=== PATIENT | female | born 1985 | race Caucasian/White ===

== ENCOUNTER 2016-11-22 10:02 | Inpatient (IN) | payer OTHER ==
[~2016-11-22] VITALS: Ht 157.5 cm; Wt 59.2 kg
[~2016-11-22 10:02] MED LIST: BACTRIM DS1 TAB PO; CLINDAMYCIN HC300 MG PO; IBUPROFEN400 MG PO; IRON325 MG PO; LOPERAMIDE HCL2 MG PO; METHADONE HCL10 MG PO
--- NOTE | 2016-11-22 15:48 | DIAGNOSTIC IMAGING REPORT ---
PROCEDURE: CT ABD/PELVIS WITH CONTRAST INDICATION: Right abdominal pain. Nausea. Elevated white blood count (16,000). Prior cholecystectomy. History of Crohn disease. TECHNIQUE: 110 ml of Isovue 300 were injected intravenously and axial images were obtained of the entire abdomen and pelvis with sagittal and coronal reformations. COMPARISON: None. FINDINGS: ABDOMEN: There is mild increased fluid in the small bowel and right colon. Terminal ileum is decompressed, and there is no evidence of mucosal thickening. Appendix is normal. Cholecystectomy. Minimal intrahepatic ductal dilation. Common duct is normal. Liver is normal. Mild splenomegaly (13.5 cm). Pancreas, kidneys, and aorta are normal. Mild of basilar atelectasis. PELVIS: Retroverted uterus (normal variant). Adnexal regions are normal. No evidence of free fluid. IMPRESSION: 1. Mild increased fluid in the small bowel right colon. Findings are most compatible with enterocolitis. No definite evidence of Crohn disease. 2. Status post cholecystectomy. 3. Mild splenomegaly (13.5 cm). 4. Retroverted uterus (normal variant). 5. Mild bibasilar subsegmental atelectasis. 6. Findings discussed with Dr. Nabil Nguyen. All CT scans at this facility use dose modulation, iterative reconstruction, and/or weight-based dosing when appropriate to reduce radiation dose to as low as reasonably achievable.
--- NOTE | 2016-11-22 16:35 | ED CLINICAL REPORT ---
Clinical Report - Physicians/Mid Levels [facility] [address] [place] [address] 11/22/2016 10:03 Patient: KUSHAL SIMENTAL Time Seen: 11:01. Arrived- By private vehicle. Historian- patient. HISTORY OF PRESENT ILLNESS Chief Complaint: MUSCLE ACHES, NAUSEA, HEMATURIA, HEADACHE and WEAKNESS. At its maximum, severity described as severe. When seen in the E.D., severity described as severe. This started several days ago and is still present. It was gradual in onset and has been constant and waxing/waning. The patient has had loss of appetite, a headache, fatigue and generalized weakness. (The patient reports that she's been feeling poorly for several days. She says she is generally weak is aching all over has had chills and sweats. Additionally she reports a red area on her L hand that is swollen and painful. She also says that her urine has been very dark in color. Additionally she reports right-sided abdominal pain and some nausea but denies vomiting.). REVIEW OF SYSTEMS The patient has had chills, muscle aches, fatigue, a cough and moderate abdominal pain. The pain is described as located in the right side of the abdomen. She has had nausea and experienced sweats. No calf pain, chest pain, difficulty breathing, pedal edema or palpitations. No black stools, bloody stools, constipation, diarrhea or vomiting. No neck pain. All systems otherwise negative, except as recorded above. PAST HISTORY Problems: Abscess Check. Abscess. Cellulitis. Lifestyle / Substance Problems. Peptic Ulcer Disease. Scoliosis. Tenosynovitis. Drug Addiction. Anxiety Reaction. Sepsis. UTI - Urinary Tract Infection. Pancreatitis. Crohn's Disease. Contusion. Additional Surgeries: Cholecystectomy. Colonoscopy. Medications: None. Allergies: Ibuprofen. Tylenol. SOCIAL HISTORY No alcohol use. FAMILY HISTORY Denies family medical history. ADDITIONAL NOTES The nursing notes have been reviewed. PHYSICAL EXAM Vital Signs: 11/22/2016 10:50 BP: 112/69. HR: 130. RR: 20. O2 saturation: 98%. Temp: 100.3 F. Pain level now: 10/10. Have been reviewed. Appearance: Alert. Eyes: Pupils equal, round and reactive to light. ENT: Pharynx normal. Neck: Normal inspection. Neck supple. CVS: Tachycardia. Respiratory: No respiratory distress. Breath sounds normal. Abdomen: No visible injury. Moderate tenderness in the right side of the abdomen. Bowel sounds normal. No organomegaly. No mass. Back: Normal inspection. Mild CVA tenderness on the right. Skin: Small area of cellulitis with tenderness, erythema and warmth to left hand. Extremities: Extremities exhibit normal ROM. No calf tenderness. No lower extremity edema. LABS, X-RAYS, AND EKG Abdominal CT: IMPRESSION: 1. Mild increased fluid in the small bowel right colon. Findings are most compatible with enterocolitis. No definite evidence of Crohn disease. 2. Status post cholecystectomy. 3. Mild splenomegaly (13.5 cm). 4. Retroverted uterus (normal variant). 5. Mild bibasilar subsegmental atelectasis. The study was interpreted contemporaneously by me and discussed with the radiologist. Laboratory Tests: UA-Culture if indicated: (RAYA: 11/22/2016 10:55) ( MsgRcvd 11/22/2016 12:17) Final results Test Result Flag Units (Reference) URINE COLOR SOUMYA URINE APPEARANCE CLOUDY URINE GLUCOSE NEGATIVE (NEGATIVE) URINE BILIRUBIN ICTOTEST NEGATIVE (NEGATIVE) URINE KETONE TRACE (NEGATIVE) URINE SPECIFIC GRAVITY >= 1.030 (1.010-1.030) URINE PH 6.0 (5.0-8.0) URINE PROTEIN 2+ (NEGATIVE) URINE UROBILINOGEN 2.0 EU/dL (0.2-1.0) The urobilinogen reagent area may react with interferingsubstances known to react with Aby's reagent such asp-aminosalicylic acid and sulfonamides. Atypical colorreactions may be obtained in the presence of highconcentrations of p-aminobenzoic acid. The absence ofurobilinogen cannot be determined with this test. URINE NITRITE POSITIVE (NEGATIVE) URINE BLOOD 2+ (NEGATIVE) URINE LEUK ESTERASE NEGATIVE (NEGATIVE) URINE RBC 3-5 rbc/hpf (0-1) URINE WBC 25-50 wbc/hpf (0-1) URINE EPITHELIAL CELLS >15 EPI/hpf (0-5) URINE BACTERIA MODERATE (2+ TO 3+) (NONE SEEN) URINE COMMENT CULT NOT INDICATED 25-50 GRANULAR CASTS. CULTURE NOT INDICATED DUE TO >15EPITHELIAL CELLS WHICH INDICATES CONTAMINATION. IF CULTUREIS STILL REQUIRED, PLEASE CALL THE LAB.URINE CULTURES ARE SET-UP BASED ON THE FOLLOWING CRITERIA:POSITIVE NITRITEPOSITIVE LEUKOCYTE ESTERASEGREATER THAN 10 WHITE BLOOD CELLSMODERATE (2+) OR GREATER BACTERIA Urine: (RAYA: 11/22/2016 10:55) ( [facility] 11/22/2016 11:30) Final results Test Result Flag Units (Reference) URINE NEGATIVE CBC w Diff: (RAYA: 11/22/2016 11:55) ( [facility] 11/22/2016 13:19) Final results Test Result Flag Units (Reference) WHITE BLOOD COUNT 16.0 H K/uL (4.5-11.5) RED BLOOD COUNT 4.93 M/uL (4.00-5.20) HEMOGLOBIN 12.3 gm/dL (12.0-16.0) HEMATOCRIT 37.1 % (36.0-46.0) MEAN CELL VOLUME 75 L fL (80-100) MEAN CORPUSCULAR HGB 25 L pg (26-34) MEAN CORPUSCULAR HGB CONC 33 g/dL (31-37) RED CELL DISTRIBUTION WIDTH 13.5 % (11.6-14.8) PLATELET COUNT 265 K/uL (150-400) POLY % 81 H % (50-75) BAND % 8 % (0-8) LYMPH 8 L % (25-40) MONO 3 % (3-14) EOSINOPHIL % 0 % (0-4) BASOPHIL % 0 % (0-2) METAMYELOCYTE % 0 % (0-1) MYELOCYTE 0 % (0-1) OTHER CELL TYPE 0 Lactate, Serum: (RAYA: 11/22/2016 11:55) ( [facility] 11/22/2016 13:12) Final results Test Result Flag Units (Reference) LACTIC ACID 1.3 mmol/L (0.4-2.0) CMP: (RAYA: 11/22/2016 11:55) ( MsgRcvd 11/22/2016 13:49) Final results Test Result Flag Units (Reference) GLUCOSE 124 H mg/dL (70-110) BUN 9 mg/dL (7-18) CREATININE 0.9 mg/dL (0.6-1.3) Estimated GFR >60 mL/min Estimated GFR- >60 mL/min Note: Persistent reduction over 3 months in eGFR<60 mL/min/1.73 m2 defines CKD. Patients with eGFR values>=60 mL/min/1.73 m2 may also have CKD if evidence ofpersistent proteinuria. Additional information may be foundat www.kidney.org. SODIUM 123 L mmol/L (136-145) POTASSIUM 3.9 mmol/L (3.5-5.1) SPECIMEN GROSSLY HEMOLYZED. RESULT MAY BE INCREASED. PATIENTREFUSED REDRAW. CHLORIDE 87 L mmol/L (98-107) CARBON DIOXIDE 29 mmol/L (21-32) CALCIUM 8.9 mg/dL (8.5-10.1) TOTAL PROTEIN 8.1 g/dL (6.4-8.2) ALBUMIN 2.9 L g/dL (3.3-5.0) BILIRUBIN, TOTAL 0.9 mg/dL (0.0-1.0) ALKALINE PHOSPHATASE 31 L U/L (46-116) AST (SGOT) 25 U/L (15-37) SPECIMEN GROSSLY HEMOLYZED. RESULT MAY BE INCREASED. PATIENTREFUSED REDRAW. ALT (SGPT) 20 U/L (12-78) LIPASE 52 L U/L (73-393) AMYLASE 24 L U/L (25-115) Urine Drug Screen: (RAYA: 11/22/2016 10:55) ( MsgRcvd 11/22/2016 11:40) Final results Test Result Flag Units (Reference) AMPHETAMINE/METHAMPHETAMINE POSITIVE H (NEGATIVE) BARBITURATE NEGATIVE (NEGATIVE) BENZODIAZEPINE NEGATIVE (NEGATIVE) CANNABINOID POSITIVE H (NEGATIVE) COCAINE NEGATIVE (NEGATIVE) ECSTASY POSITIVE H (NEGATIVE) METHADONE NEGATIVE (NEGATIVE) OPIATE POSITIVE H (NEGATIVE) The urine drug screen is a qualitative screening test fordrug overdose and abuse. All screen results should beconsidered as presumptive.Drugs screened for are as follows:BenzodiazepinesCocaineAmphetamines/MetamphetaminesTHC (Tetrahydrocannabinol)OpiatesBarbituratesEcstasyMethadonePositive results are unconfirmed. For confirmation, notifythe lab for the specimen to be sent to the reference lab.All confirmations must be performed by a differentmethodology.The ingestion of natural herbal and plant productscontaining Ephedra/Ephedra metabolites can produce in urineone or more substances capable of cross reacting withamphetamine/methamphetamine immunoassays. These testsprovide a preliminary result only. A more specificalternative chemical method must be used to obtain aconfirmed analytical result. . PROGRESS AND PROCEDURES Course of Care: Patient is stable. Discussed case with hospitalist, (Aleja). Reviewed test results and need for additional work-up. Agreed upon treatment plan, need for patient follow-up and decision to place in observation. Patient/family counseled. Old medical records reviewed. Disposition: Admitted. CLINICAL IMPRESSION Acute fever. Leukocytosis. Substance abuse- marijuana, heroin, methamphetamines. Gastroenteritis. Cellulitis of the left hand. Possible urinary tract infection. (Electronically signed by Nabil Nguyen MD 11/24/2016 9:33)
--- NOTE | 2016-11-22 16:35 | ED NURSING NOTES ---
Clinical Report - Nurses [facility] [address] [place] [address] 11/22/2016 10:03 Patient: KUSHAL SIMENTAL TRIAGE Acuity: LEVEL 3. Chief Complaint: MUSCLE ACHES and HEADACHE. SEPSIS SCREEN: Sepsis Screen. Infection suspected/documented. Heart rate greater than 90. Physician notified and protocol initiated. MICHELLE COMA SCORE: [place] Coma Scale: 15- eyes open spontaneously (4); best verbal response- oriented x 4 (5); best motor response- obeys commands (6). --10:55 Rama Liz R.N. 10:50 11/22/16. BP: 112/69. HR: 130. RR: 20. O2 saturation: 98% on room air. Temp: 100.3 F (oral). Pain level now: 03/16. --10:55 Rama Liz R.N. Weight: 58.9 kg stated. Height/Length: 62 inches Per Patient. BMI: 23.8. --10:54 Rama Liz R.N. Medications None. --10:51 Rama Liz R.N. Medication/allergy information source: the patient. --10:55 Rama Liz R.N. Allergies Ibuprofen. Tylenol. --10:51 Rama Liz R.N. History Arrived by private vehicle, and unaccompanied. Primary physician ([facility] Arjun). Onset. (3 days ago). PAST MEDICAL HX: Last normal menstrual period was 4 weeks ago. SOCIAL HX: Never smoker. History of heavy IV drug use: heroin, methamphetamines. No alcohol use. FALL RISK ASSESSMENT: Fall risk assessment completed. No fall risk identified. NUTRITIONAL RISK ASSESSMENT: The nutritional risk assessment revealed no deficiencies. FUNCTIONAL ASSESSMENT: Functional assessment: no impairments noted. LEARNING NEEDS ASSESSMENT: The learning needs assessment revealed no barriers. SKIN INTEGRITY ASSESSMENT: Skin integrity risk assessment completed. No skin integrity risk identified. --10:55 Rama Liz R.N. PROBLEMS: Abscess Check. Abscess. Cellulitis. Abcess. Lifestyle / Substance Problems. Peptic Ulcer Disease. Scoliosis. Tenosynovitis. Drug Addiction. Anxiety Reaction. Sepsis. Pancreatitis. Crohn's Disease. Contusion. Abdominal Pain. Dental Caries. LNMP - Last Normal Menstrual Period. --10:51 Rama Liz R.N. UTI - Urinary Tract Infection [RuleOut]. --16:22 Nabil Nguyen MD The following entry was modified by Nabil Nguyen MD, 16:22 <<STRICKEN ENTRY-- UTI - Urinary Tract Infection. --15:08 Rama Liz R.N. --END STRIKE>>. ADDITIONAL SURGERIES: Cholecystectomy. Colonoscopy. --10:51 Rama Liz R.N. Assessment GENERAL / NEURO / PSYCH: Alert. Oriented X 4. Appears in no acute distress. Patient appears calm and cooperative. RESPIRATORY: Respirations not labored. CVS: Capillary refill less than 2 seconds. GI / : Abdomen soft and nontender. SKIN: Mucous membranes are pink. Skin is warm and dry. --10:55 Rama Liz R.N. Interventions ID band on patient. To treatment room. --10:55 Rama Liz R.N. PHYSICAL ASSESSMENT 10:56 11/22/16. Ambulatory to room. GENERAL / NEURO / PSYCH: Alert. Oriented X 4. Appears in no acute distress. HEENT: Pupils equal, round and reactive to light. Mucous membranes are pink. RESPIRATORY: Respirations not labored. CVS: Capillary refill less than 2 seconds. Pulses within normal limits. GI / : Abdomen soft and nontender. SKIN: Skin intact. Skin is warm and dry. Normal skin turgor. --10:56 Rama Liz R.N. NURSING PROGRESS NOTES Patient gowned. Two patient identifiers checked. Checked patient name and birthdate. Call light placed in reach. Side rails up x 1. Bed placed in lowest position. Brakes of bed on. Patient ready for evaluation- chart flagged and ED physician notified. --10:56 Rama Liz R.N. 11:59 11/22/2016 Site #1 started via IV in the right upper arm with an 20g angiocath, with aseptic technique and good blood return; one attempt. Blood drawn: rainbow set and cultures x1. Labeled in the presence of the patient and sent to the lab. Saline lock flushed with 10 mL saline (Right upper arm basilic. ultrasound guidance x20 minutes. one attempt.). --12:09 Nicanor Alicea R.N. 12:04 11/22/2016 Started bag #1 1000 mL IV Fluids IV NS (Saline); at 999 mL/hr over 1 hour(s) via site #1. Allergies verified and confirmed 5 rights. IV patency established. IV site checked: no pain, redness, or swelling. IV flushed thoroughly pre- and post-medication administration. Completed per protocol. --12:09 Nicanor Alicea R.N. 12:35 11/22/16. BP: 125/79. HR: 18. RR: 20. O2 saturation: 100% on room air. Temp: 100.2 F (oral). --12:35 Rama Liz R.N. 14:31 11/22/16. Patient transported to CT by stretcher with tech. --14:31 Rama Liz R.N. 14:38 11/22/16. Patient returned from CT by stretcher with tech. --14:38 Rama Liz R.N. 16:01 11/22/16. BP: 128/82. HR: 135. RR: 18. O2 saturation: 100% on room air. Temp: 102.9 F (oral). ED physician notified. --16:02 Rama Liz R.N. 13:10 11/22/2016 IV Fluids IV NS Discontinued: bag #1 upon arrival. Total amount infused: 1000 mL. IV patency established. IV site checked: no pain, redness, or swelling. IV flushed thoroughly. --16:10 Rama Liz R.N. <<STRICKEN ENTRY-- 16:11 11/22/2016 Started bag #2 1000 mL IV Fluids IV NS (Saline); at 200 mL/hr over 4 hour(s) via site #1 via IV pump. Allergies verified and confirmed 5 rights. IV patency established. IV site checked: no pain, redness, or swelling. IV flushed thoroughly pre- and post-medication administration. --16:11 Rama Liz R.N. --END STRIKE>> Correction. --16:11 Rama Liz R.N. 16:11 11/22/2016 Started bag #2 1000 IV Fluids IV NS (Saline); at 200 mL/hr over 4 hour(s) via site #1 via IV pump. Allergies verified and confirmed 5 rights. IV patency established. IV site checked: no pain, redness, or swelling. IV flushed thoroughly pre- and post-medication administration (per ED MD order). --16:11 Rama Liz R.N. 16:27 11/22/16. ( Pt refuses to allow second set of blood cultures to be drawn.). --16:27 Rama Liz R.N. 16:49 11/22/2016 Started 3.375 gm of Zosyn (Piperacillin Sod-Tazobactam So) IVPB in bag #1 50 mL; at 100 mL/hr over 30 minute(s) via site #1 via IV pump. Allergies verified and confirmed 5 rights. IV patency established. IV site checked: no pain, redness, or swelling. IV flushed thoroughly pre- and post-medication administration. --16:49 Rama Liz R.N. 16:50 11/22/16. ( Dr Masterson at bedside.). --16:50 Rama Liz R.N. 17:12 11/22/16. BP: 125/80. HR: 132. RR: 18. O2 saturation: 100%. Temp: 103.1 F. --17:14 Rama Liz R.N. 17:21 11/22/2016 Zosyn IVPB Discontinued: bag #1 infused. Total amount infused: 117 mL. IV patency established. IV site checked: no pain, redness, or swelling. IV flushed thoroughly. --17:21 Rama Liz R.N. 17:25 11/22/2016 Started 1.5 gm of Vancomycin IVPB in bag #1 500 mL; at 324 mL/hr over 90 minute(s) via site #1 via IV pump. Allergies verified and confirmed 5 rights. IV patency established. IV site checked: no pain, redness, or swelling. IV flushed thoroughly pre- and post-medication administration. --17:26 Rama Liz R.N. DISPOSITION / DISCHARGE 17:32 11/22/16. BP: 122/86. HR: 126. RR: 18. O2 saturation: 98% on room air. Temp: 103 F. --17:34 Rama Liz R.N. Departure time: 17:34 Nov 22 2016. Condition at departure: improved and stable. Admitted to Acute Care. Transported via stretcher by tech with IV. Report was given to a nurse via a phone call. Report included patient's care, treatment, medications, reviewed medication reconcilliation, and condition (including any recent changes or anticipated changes). All questions were answered. Report was acknowledged and care was transferred. (WADE Rankin). Patient's personal items include: shirt, pants, socks, shoes, jewelry and wallet; items were placed in belongings bag and transported with the patient. She did not have glasses, contacts, dentures or a hearing aid or cell phone. --17:34 Rama Liz R.N. 17:30 11/22/2016 Site #[address] upon admission; patent, no pain and no signs of infection or infiltration. --17:55 Rama Liz R.N. 17:30 11/22/2016 IV Fluids IV NS Continued: upon admission at the rate of 200 mL/hr. 800 mL remaining bag #2. IV patency established. IV site checked: no pain, redness, or swelling. IV flushed thoroughly. --17:55 Rama Lzi R.N. 17:32 11/22/2016 Vancomycin IVPB Continued: upon admission at the rate of 353 mL/hr. 400 mL remaining bag #1. IV patency established. IV site checked: no pain, redness, or swelling. IV flushed thoroughly. --17:58 Rama Liz R.N. Locked/Released at 11/22/2016 17:58 by Rama Liz R.N.
--- NOTE | 2016-11-22 16:35 | ED ORDER SUMMARY ---
..... Patient: KUSHAL SIMENTAL OrderSheet [facility] VisitID: [id number] [address] [place] [address] 31y, F Registration Date/Time: 11/22/2016 ORDER SHEET Weight: 58.9 kg (stated) Allergies: Ibuprofen, Tylenol GENERAL ORDERS: UA-Culture if indicated Urgent (11:00 11/22/2016 MWinterer R.N. per protocol) (11:16 MWinterer R.N.) Urine Urgent (11:11/22/2016 MWinterer R.N. per protocol) (11:16 MWinterer R.N.) Urine Drug Screen Urgent (11:11/22/2016 Debora STARK) (11:16 MWinterer R.N.) Blood Culture (No) (N/A) Urgent (11:11/22/2016 Debora STARK) (Ack 11:57 Juliet) (12:09 KWilliams R.N.) CBC w Diff Urgent (11:11/22/2016 Debora STARK) (Ack 11:57 Juliet) (12:09 KWilliams R.N.) CMP Urgent (11:11/22/2016 Debora STARK) (Ack 11:57 Juliet) (12:09 KWilliams R.N.) Amylase Urgent (11:11/22/2016 Debora STARK) (Ack 11:57 Juliet) (12:09 KWilliams R.N.) Lipase Urgent (11:11/22/2016 Debora STARK) (Ack 11:57 Juliet) (12:09 KWilliams R.N.) Lactate, Serum Urgent (11:11/22/2016 Debora STARK) (Ack 11:57 Juliet) (12:09 KWilliams R.N.) CT Abd/Pel w Cont (No) (see rpeort) Urgent (14:07 11/22/2016 Debora STARK) (Ack 14:11 AMcQuoid ER Tech1) (14:37 MWinterer R.N.) MEDICATION ORDERS: IV FLUIDS: IV NS : initial bolus 1000 mL (1000 mL/hr), then 150 mL/hr for 4h (NOW); Urgent (11:02 11/22/2016 Debora STARK) (Ack 11:17 MWinterer R.N.) (12:09 KWilliams R.N.) Zosyn IV 3.375 gm/50mL (NOW) (16:24 11/22/2016 Debora STARK) (Ack 16:27 MWinterer R.N.) (16:49 MWinterer R.N.) Vancomycin IV 1.5 gm/500 mL (NOW) (16:24 11/22/2016 Debora STARK) (Ack 16:27 MWinterer R.N.) (17:26 MWinterer R.N.) ORDER SHEET NOTES: [Electronically signed by Rama Liz R.N. (17:58 11/22/2016)] [Electronically signed by Nabil Nguyen MD (09:33 11/24/2016)] [Electronically locked/signed by Rama Liz R.N. (17:58 11/22/2016)]
--- NOTE | 2016-11-22 16:35 | ED ORDER SUMMARY ---
..... Patient: KUSHAL SIMENTAL OrderSheet [facility] VisitID: [id number] [address] [place] [address] 31y, F Registration Date/Time: 11/22/2016 ORDER SHEET Weight: 58.9 kg (stated) Allergies: Ibuprofen, Tylenol GENERAL ORDERS: UA-Culture if indicated Urgent (11:00 11/22/2016 MWinterer R.N. per protocol) (11:16 MWinterer R.N.) Urine Urgent (11:11/22/2016 MWinterer R.N. per protocol) (11:16 MWinterer R.N.) Urine Drug Screen Urgent (11:11/22/2016 Debora STARK) (11:16 MWinterer R.N.) Blood Culture (No) (N/A) Urgent (11:11/22/2016 Debora STARK) (Ack 11:57 Juliet) (12:09 KWilliams R.N.) CBC w Diff Urgent (11:11/22/2016 Debora STARK) (Ack 11:57 Juliet) (12:09 KWilliams R.N.) CMP Urgent (11:11/22/2016 Debora STARK) (Ack 11:57 Juliet) (12:09 KWilliams R.N.) Amylase Urgent (11:11/22/2016 Debora STARK) (Ack 11:57 Juliet) (12:09 KWilliams R.N.) Lipase Urgent (11:11/22/2016 Debora STARK) (Ack 11:57 Juliet) (12:09 KWilliams R.N.) Lactate, Serum Urgent (11:11/22/2016 Debora STARK) (Ack 11:57 Juliet) (12:09 KWilliams R.N.) CT Abd/Pel w Cont (No) (see rpeort) Urgent (14:07 11/22/2016 Debora STARK) (Ack 14:11 AMcQuoid ER Tech1) (14:37 MWinterer R.N.) MEDICATION ORDERS: IV FLUIDS: IV NS : initial bolus 1000 mL (1000 mL/hr), then 150 mL/hr for 4h (NOW); Urgent (11:02 11/22/2016 Debora STARK) (Ack 11:17 MWinterer R.N.) (12:09 KWilliams R.N.) Zosyn IV 3.375 gm/50mL (NOW) (16:24 11/22/2016 Debora STARK) (Ack 16:27 MWinterer R.N.) (16:49 MWinterer R.N.) Vancomycin IV 1.5 gm/500 mL (NOW) (16:24 11/22/2016 Debora STARK) (Ack 16:27 MWinterer R.N.) (17:26 MWinterer R.N.) ORDER SHEET NOTES: [Electronically signed by Rama Liz R.N. (17:58 11/22/2016)] [Electronically signed by Nabil Nguyen MD (09:33 11/24/2016)] [Electronically locked/signed by Rama Liz R.N. (17:58 11/22/2016)]
--- NOTE | 2016-11-22 17:18 | Progress Note ---
Subjective General Admission History and Physical Examination Patient Name: Magdalena Cash Admission Date: November 22, 2016 Primary Care Provider: None Attending Physician: Moris Hagan M.D. Admitting Physician: Cheng Masterson M.D. SUBJECTIVE Historian: Patient Reliability: Fair Chief Complaint: Abdominal pain Dysuria Pain swelling over the left hand General body body aches with headache/neck pain. History of Present Illness: The patient is a 31 - year-old single white female with a past medical history of Crohn's disease, scoliosis, illicit drug use-heroin, methamphetamine, THC, who presented to [facility] emergency room on the day of admission with upper abdominal pain, fatigue (malaise, chills) changes in urination (incontenence), swelling and pain in the left dorsum of the left hand and general body aches. The history of present illness was reported 4 days prior to the admission. She developed epigastric pain, nausea no vomitting. She generally stools multiple times per day with hx of the Crohn's,, but due to her lack of oral intake she was not stooling over thepast 4 days. She reports of a decrease in her urinations. when the patient developed abdominal pain. Her general aches, headaches was said to be moderate to severe degree Secondary to increasing and progressive symptoms the patient presented to [facility] emergency department for further evaluation and treatment. Evaluation at [facility] emergency department was consistent with enterocolitis, UTI, cellutlitis and (rule out for endocarditis given IVDU, fever and tachycadia. She reports that she last used heroin, injection in the feet; this morning and methamphetamine 4 days ago. denies use of the left upper extremity for injection. She's had problems with skin on the left hand in the past. She was admitted by Cheng Masterson MD for further evaluation and treatment. PAST MEDICAL HISTORY Illnesses: 1. Crohn's disease 2. Illicit drug use-heroin, methamphetamine, THC, 3. Scoliosis Allergies: 1. Tylenol Medications: 1. Ibuprofen 400 mg po as needed for headache pain Surgery: 1. Cholecystectomy Injuries: 1. No significant Hospitalizations: 1. For above surgery and medical problems. FAMILY HISTORY Parents: 1. Father, Unknown, 2. Mother, , 48, drugs/alcohol overdose. Hypertension, Crohn's disease Siblings: 1. Female, 20s with muscular dystrophy Children: 1. The patient has 2 children age 7 and 11 with no medical problems. Other significant family history: None SOCIAL HISTORY 1. Marital Status: 2. Evangelical: None 3. Education: 12th grade 4. Employment History: Unemployed 5. Occupational health exposures: None. 6. Patient currently lives with her grandparents in a trailer on the property. She does not have custody of children due to the drug use. lost custody of her children. Secondary to her drug usage. Her former spouse has custody of her children at this time. HABITS 1. Tobacco: None 2. Drugs: Heroin, methamphetamine, marijuana 3. Alcohol: None 4. Caffeine: multiple cups per day of coffee. HEALTH SUPERVISION Item/Test 1. Pap, pelvic 2013; none afterward. IMMUNIZATIONS: 1. Pneumococcal: Non previous 2. Influenza: 2013 3. Tetanus: 2013 REVIEW OF SYSTEMS Remarkable for those things stated in the history of present illness and past medical history. Constitutional Weakness, Malaise, Other (body aches.). Respiratory Denies: SOB w/exertion, Wheezing. Cardiovascular Other (tachycardia). Gastrointestinal Nausea, Abdominal Pain, Diarrhea. Denies: Vomiting. Genitourinary Dysuria, Incontinence. Musculoskeletal Hand Pain, Other (hx of scoliosis). Skin Rash. Physical Exam Vital Signs / I&Os 112/69. HR: 130. RR: 20. O2 saturation: 98%. Temp: 100.3 F. Pain level now: 10/ 10. General Appearance Alert, Oriented X3, Cooperative, Mild distress HEENT EOMI Lungs Clear to auscultation Neck No JVD, No masses, No thyromegaly, neck pain with movement, negative brudinski. Cardiovascular Normal S1 and S2, No murmurs, gallops, rubs, tachycardia, normal rhythm Abdomen hyperactive bs Extremities No cyanosis, No clubbing, No edema, Normal pulses Skin swelling, with erythema left dorsum of the hand. Warmth over the hand dorsum, no signs drainage. B/L knees para-patellar- erythema and warmth. No tenderness and no swellig. Neurological Normal speech, Normal tone Psych/Mental Status Mood normal LAB Results Laboratory Tests 11/22 11/22 11/22 1055 1055 1155 Chemistry Plasma Sodium (136 - 145 mmol/L) 123 Plasma Potassium (3.5 - 5.1 mmol/L) 3.9 Plasma Chloride (98 - 107 mmol/L) 87 CO2 (Enzymatic) (21 - 32 mmol/L) 29 BUN (7 - 18 mg/dL) 9 Creatinine (0.6 - 1.3 mg/dL) 0.9 Est GFR ( Amer) (mL/min) >60 Est GFR (Non-Af Amer) (mL/min) >60 Glucose (70 - 110 mg/dL) 124 Plasma Calcium (8.5 - 10.1 mg/dL) 8.9 Total Bilirubin (0.0 - 1.0 mg/dL) 0.9 AST (15 - 37 U/L) 25 ALT (12 - 78 U/L) 20 Alkaline Phosphatase (46 - 116 U/L) 31 Total Protein (6.4 - 8.2 g/dL) 8.1 Albumin (3.3 - 5.0 g/dL) 2.9 Amylase (25 - 115 U/L) 24 Lipase (73 - 393 U/L) 52 Hematology WBC (4.5 - 11.5 K/uL) 16.0 RBC (4.00 - 5.20 M/uL) 4.93 Hgb (12.0 - 16.0 gm/dL) 12.3 Hct (36.0 - 46.0 %) 37.1 MCV (80 - 100 fL) 75 MCH (26 - 34 pg) 25 RDW (11.6 - 14.8 %) 13.5 Neut % (Auto) (50 - 75 %) 81 Lymph % (Auto) (25 - 40 %) 8 [place] % (Auto) (3 - 14 %) 3 Eos % (Auto) (0 - 4 %) 0 Baso % (Auto) (0 - 2 %) 0 Band Neutrophils % (0 - 8 %) 8 Metamyelocytes % (0 - 1 %) 0 Myelocytes (0 - 1 %) 0 Other Cell Type 0 Plt Count, EDTA (150 - 400 K/uL) 265 PUBS MCHC (31 - 37 g/dL) 33 Toxicology Urine Opiates Screen (NEGATIVE) POSITIVE Urine Methadone Screen (NEGATIVE) NEGATIVE Ur Barbiturates Screen (NEGATIVE) NEGATIVE U Amphetamin/Meth Scrn (NEGATIVE) POSITIVE MDMA (Ecstasy) Screen (NEGATIVE) POSITIVE U Benzodiazepines Scrn (NEGATIVE) NEGATIVE Urine Cocaine Screen (NEGATIVE) NEGATIVE U Cannabinoids Screen (NEGATIVE) POSITIVE Urines Urine Color SOUMYA Urine Appearance CLOUDY Urine pH (5.0 - 8.0) 6.0 Ur Specific [place] (1.010 - 1.030) >= 1.030 Urine Protein (NEGATIVE) 2+ Urine Ketones (NEGATIVE) TRACE Urine Blood (NEGATIVE) 2+ Urine Nitrite (NEGATIVE) POSITIVE Ur Bilirubin Confirm (NEGATIVE) NEGATIVE Urine Urobilinogen (0.2 - 1.0 EU/dL) 2.0 Ur Leukocyte Esterase (NEGATIVE) NEGATIVE Urine RBC (0 - 1 rbc/hpf) 3-5 Urine WBC (0 - 1 wbc/hpf) 25-50 Ur Epithelial Cells (0 - 5 EPI/hpf) >15 Urine Bacteria (NONE SEEN) MODERATE (2+ TO 3+) Urine Glucose (NEGATIVE) NEGATIVE Urine Test NEGATIVE Urine Comment CULT NOT INDICATED 11/22 1155 Chemistry Lactic Acid (0.4 - 2.0 mmol/L) 1.3 Microbiology Date/Time Procedure - Status Source Growth 11/22 171 Superficial Wound Culture - ORD HAND 11/22 171 Gram Stain - ORD HAND 11/22 1712 Gram Stain - ORD HAND 11/22 1155 Blood Culture - RECD BLOOD 11/22 1102 Blood Culture - CAN BLOOD Cancelled: PT REFUSED 11/22 1055 Urine Culture - CAN URINE CC Cancelled: CONTAMINATED CULTURE, >[address] abd. and pelvis 1. Mild increased fluid in the small bowel right colon. Findings are most compatible with enterocolitis. No definite evidence of Crohn disease. 2. Status post cholecystectomy. 3. Mild splenomegaly (13.5 cm). 4. Retroverted uterus (normal variant). 5. Mild bibasilar subsegmental atelectasis. Assessment and Plan Problem List 1. Cellulitis of hand Plan Cellulitis of the left hand. This is not a significant finding, but with recent us of IV drugs; it is imperative that the skin infection discovered. Vancomycin renally dosed Zosyn 3.125 mg every 6 hours. Follow blood cultures, urine cultures. Skin cultures are difficult to obtain; but we'll follow-up gathered. Watch and follow possibly occult blood and wound care if needed. 2. Enterocolitis Plan History of enterocolitis. Patient had confirmed diagnosis of Crohn's that has been stable until recently. Patient with a recent bout of abdominal pain. Generally patient has loose stools. Prior treatment for Crohn's. Recent CT scan of abdomen showing signs viral Enterocolitis, rather than Crohn's. 1.5 times maintenance fluids. Repeat normal saline bolus. Patient's been febrile, pre-septic determinations showing only leukocytosis negative lactic acid. Light meals. If exacerbation of abdominal complaint; then it will be an instruction to have patient be placed nothing by mouth. GI Prophylaxis famotidine DVT prophylaxis Lovenox 3. Substance abuse Plan History of substance abuse including marijuana and methamphetamine. Last use today. Patient is at risk for systemic infection, no prior history of endocarditis however workup this in the past. Strong encouragement for patient to discontinue use and seeking counseling. Starting methadone 10 mg every 6 hours. We'll taper as needed. Methadone clinic may be appropriate. Patient is already enrolled in a Suboxone clinic 4. UTI (urinary tract infection) Plan There is signs of a UTI with abrupt changes with incontinence, dysuria. Plan to follow and watch. Urine cultures on pending. Patient is on appropriate coverage. 5. Leukocytosis Plan Elevated white blood cell count with bands consistent with infection. Abdominal colitis possible UTI notable on initial workup. Patient with fevers recurrent during her admission. Started patient on naproxen for antipyretic properties, patient is allergic to Tylenol. Echocardiogram to assess valvular structures. 6. Fever Plan Multiple fevers. Antipyretic naproxen. Potential presynaptic. Zosyn vancomycin. Repeat blood cultures Follow-up on an echocardiogram Current status: Fair poor Anticipated discharge date: 1-2 days Anticipated discharge placement: Home Patient care time: Time spent in chart review, patient interview, physical exam, CPOE, and care documentation: 70 minutes minutes Visit to patient today: 2 Complexity of care: moderate E&M Codes Admission: Inpt-High/46046 E&M Codes Admission: Inpt-High/12360
[2016-11-22 18:20] VITALS: BP 123/77
[2016-11-22 21:00] VITALS: BP 93/57
[2016-11-22 21:30] VITALS: BP 95/61
[2016-11-22 22:20] VITALS: BP 91/61
[2016-11-23] VITALS (10 sets, daily range): BP systolic 87–132; BP diastolic 56–98
--- NOTE | 2016-11-23 00:26 | DIAGNOSTIC IMAGING REPORT ---
PROCEDURE: XR CHEST 1 VIEW INDICATION: PICC PLACEMENT TECHNIQUE: Portable AP view (0015 hours). COMPARISON: Compared to chest x-ray on 07/04/2015. FINDINGS: Placement of right PIC line in the mid superior vena cava (satisfactory position). Lungs are clear. Heart and mediastinum are normal. Thorax is normal. IMPRESSION: 1. Placement of right PIC line in satisfactory position (mid superior vena cava). 2. Otherwise negative chest.
--- NOTE | 2016-11-23 07:25 | Progress Note ---
Subjective General Note Date: November 23, 2016 Admission Date: November 22, 2016 Hospital Day: 2 PCP: None Status: Inpatient, ACU Advanced Directive: FULL CODE Room: 207 Admission History: The patient is a 31-year-old white female with a significant past medical history of Crohn's disease, illicit drug use-methamphetamine, heroin, marijuana who presented to [facility] emergency department on the day of admission secondary to complaints of abdominal pain, dysuria, left hand swelling and pain, and generalized body aches. [facility] ER evaluation was consistent with UTI, cellulitis of hand, rule out sepsis, and Crohn's disease. Secondary to the above the patient was admitted by Cheng Masterson M.D. for further evaluation and treatment. For other history present illness, past medical history, family history, social history, review of systems, and admission physical examination please see the patient's history and physical examination and ER visit note in the patient's medical record. Subjective: The patient states she is doing well today. No significant pain. Hand feels somewhat improved. No specific complaints Patient requests: None Medications and Allergies Medications Current Medications Sig/Jonatan Start time Last Medication Dose Route Stop Time Status Admin Naloxone HCl 0.4 MG PRN PRN 11/23 0530 AC IV Vancomycin HCl/ 200 ML Q12H 11/23 0500 AC 11/23 Dextrose IV 0512 Piperacillin/ 50 ML Q6HR 11/23 0000 AC 11/23 Tazobactam/Dextrose IV 0636 Lorazepam 0.5 MG Q4H PRN 11/22 2200 AC 11/23 IV 0118 Enoxaparin Sodium 40 MG QHS 11/22 2100 AC 11/22 SC 2036 Famotidine 20 MG Q12HR 11/22 2100 AC 11/22 PO 2036 Naproxen 500 MG BID PRN 11/22 1845 AC 11/22 PO 1941 Methadone HCl 10 MG Q6HR 11/22 1800 AC 11/23 PO 0042 Acetaminophen 650 MG Q6H PRN 11/22 1715 AC PO Naloxone HCl 0.4 MG PRN PRN 11/22 1715 AC 11/23 IV 0415 Ondansetron HCl 4 MG Q6H PRN 11/22 1715 AC PO Sodium Chloride 1,000 ML ASDIRECTED 11/22 1715 AC 11/23 IV 0635 Vancomycin HCl See Dose .[PER PHARMACY] 11/22 171 AC Insts (1) IV Zolpidem Tartrate 5 MG QHS PRN 11/22 1715 AC 11/23 PO 0042 Ondansetron HCl See Dose Q6H PRN 11/22 1700 AC Insts (2) IV Dose Instructions: (1)Vancomycin HCl: DOSING PER PHARMACY (2)Ondansetron HCl: 4 - 8 MG Allergies Coded Allergies: Acetaminophen (Pt states cannot take due to Crohn's dis-no literature fnd ) Reconcile Medications No Known Home Medications Discontinued Medications Clindamycin HCl (Clindamycin HCl 300 MG) 300 MG CAP 300 MG PO Q8H Discontinued reason: No Longer Taking Ferrous Sulfate (Iron) 325 MG TAB 325 MG PO BID Discontinued reason: No Longer Taking Ibuprofen (Ibuprofen 400 MG) 400 MG TAB 400 MG PO TID Discontinued reason: No Longer Taking Loperamide HCl (Loperamide HCl 2 MG Capsule) 2 MG CAP 2 MG PO Q6H PRN FOR DIARRHEA Discontinued reason: No Longer Taking Methadone HCl (Methadone HCl 10 MG) 10 MG TAB 10 MG PO Q8H Discontinued reason: No Longer Taking Sulfamethoxazole-Trimethoprim (Bactrim DS (double strength)) 1 TAB TAB 1 TAB PO BID Discontinued reason: No Longer Taking Physical Exam Vital Signs / I&Os Vital Signs Date Time Temp Pulse Resp B/P Pulse O2 O2 Flow FiO2 Ox Delivery Rate 11/23 0700 80 16 100 11/23 0651 97.5 92 28 101/58 99 Room Air 11/23 0539 87 30 100 11/23 0440 132/98 11/23 0420 98/62 11/23 0408 73 25 95 11/23 0355 92/68 11/23 0321 98.4 78 20 87/56 100 Room Air 11/23 0150 98/58 11/22 2220 98.6 91 20 91/61 99 Room Air 11/22 2130 98.8 108 20 95/61 100 Room Air 11/22 2100 98.1 105 20 93/57 98 Room Air 11/22 1820 103.1 129 20 123/77 100 Room Air I&O 11/23 0000 11/22 1600 11/22 0800 Intake Total 0 Output Total 0 Balance 0 General Appearance Cooperative, No acute distress, slightly lethargic. Appropriate in responses. Lungs Normal air movement, Scattered rhonchi Cardiovascular Regular rate and rhythm, Normal S1 and S2, grade 1/6 systolic murmur Abdomen Normal bowel sounds, Soft, No tenderness Extremities No cyanosis, No clubbing, Right hand erythema appears improved per history. Neurological Cranial nerves intact, Strength 5/5 x4 ext's, No lateralizing signs Psych/Mental Status Slightly lethargic. Oriented x3. LAB Results Laboratory Tests 11/23 11/22 11/22 11/22 0630 1155 1155 1055 Chemistry Plasma Sodium (136 - 145 mmol/L) 146 123 Plasma Potassium (3.5 - 5.1 mmol/L) 3.2 3.9 Plasma Chloride (98 - 107 mmol/L) 114 87 CO2 (Enzymatic) (21 - 32 mmol/L) 24 29 BUN (7 - 18 mg/dL) 8 9 Creatinine (0.6 - 1.3 mg/dL) 0.5 0.9 Est GFR ( Amer) (mL/min) >60 >60 Est GFR (Non-Af Amer) (mL/min) >60 >60 Glucose (70 - 110 mg/dL) 121 124 Lactic Acid (0.4 - 2.0 mmol/L) 1.3 Plasma Calcium (8.5 - 10.1 mg/dL) 7.4 8.9 Plasma Magnesium (1.8 - 2.4 mg/dL) 1.9 Total Bilirubin (0.0 - 1.0 mg/dL) 0.4 0.9 AST (15 - 37 U/L) 20 25 ALT (12 - 78 U/L) 15 20 Alkaline Phosphatase (46 - 116 U/L) 19 31 Total Protein (6.4 - 8.2 g/dL) 5.2 8.1 Albumin (3.3 - 5.0 g/dL) 1.9 2.9 Amylase (25 - 115 U/L) 24 Lipase (73 - 393 U/L) 52 Hematology WBC (4.5 - 11.5 K/uL) 7.5 16.0 RBC (4.00 - 5.20 M/uL) 3.43 4.93 Hgb (12.0 - 16.0 gm/dL) 8.4 12.3 Hct (36.0 - 46.0 %) 25.8 37.1 MCV (80 - 100 fL) 75 75 MCH (26 - 34 pg) 24 25 RDW (11.6 - 14.8 %) 14.0 13.5 Neut % (Auto) (50 - 75 %) Pending 81 Lymph % (Auto) (25 - 40 %) Pending 8 [place] % (Auto) (3 - 14 %) Pending 3 Eos % (Auto) (0 - 4 %) 0 Baso % (Auto) (0 - 2 %) 0 Band Neutrophils % (0 - 8 %) Pending 8 Metamyelocytes % (0 - 1 %) 0 Myelocytes (0 - 1 %) 0 Other Cell Type 0 Plt Count, EDTA (150 - 400 K/uL) 148 265 PUBS MCHC (31 - 37 g/dL) 32 33 Urines Urine Test NEGATIVE 11/22 1055 Toxicology Urine Opiates Screen (NEGATIVE) POSITIVE Urine Methadone Screen (NEGATIVE) NEGATIVE Ur Barbiturates Screen (NEGATIVE) NEGATIVE U Amphetamin/Meth Scrn (NEGATIVE) POSITIVE MDMA (Ecstasy) Screen (NEGATIVE) POSITIVE U Benzodiazepines Scrn (NEGATIVE) NEGATIVE Urine Cocaine Screen (NEGATIVE) NEGATIVE U Cannabinoids Screen (NEGATIVE) POSITIVE Urines Urine Color SOUMYA Urine Appearance CLOUDY Urine pH (5.0 - 8.0) 6.0 Ur Specific [place] (1.010 - 1.030) >= 1.030 Urine Protein (NEGATIVE) 2+ Urine Ketones (NEGATIVE) TRACE Urine Blood (NEGATIVE) 2+ Urine Nitrite (NEGATIVE) POSITIVE Ur Bilirubin Confirm (NEGATIVE) NEGATIVE Urine Urobilinogen (0.2 - 1.0 EU/dL) 2.0 Ur Leukocyte Esterase (NEGATIVE) NEGATIVE Urine RBC (0 - 1 rbc/hpf) 3-5 Urine WBC (0 - 1 wbc/hpf) 25-50 Ur Epithelial Cells (0 - 5 EPI/hpf) >15 Urine Bacteria (NONE SEEN) MODERATE (2+ TO 3+) Urine Glucose (NEGATIVE) NEGATIVE Urine Comment CULT NOT INDICATED Microbiology Date/Time Procedure - Status Source Growth 11/22 1843 Blood Culture - ORD BLOOD 11/22 1830 MRSA Screen - RECD NASAL 11/22 1712 Superficial Wound Culture - ORD HAND 11/22 1712 Gram Stain - ORD HAND 11/22 1712 Gram Stain - ORD HAND 11/22 1155 Blood Culture - RECD BLOOD 11/22 1102 Blood Culture - CAN BLOOD Cancelled: PT REFUSED 11/22 1055 Urine Culture - CAN URINE CC Cancelled: CONTAMINATED CULTURE, >15 EPITHELIAL CELLS Imaging Echocardiogram IMPRESSION: 1. Normal LV and RV systolic function. 2. Left atrial chamber size mildly enlarged. 3. 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 Moderate tricuspid regurgitation. Clinical correlation is recommended. 4. No other significant abnormalities or valves with masses suspicious for endocarditis. Dictated by: ANAM KERR MD D: VERNON;11/23/16 3645 Assessment and Plan Problem List 1. Endocarditis, suspected Status Acute Onset Date Unknown Plan -echocardiogram suggests tricuspid endocarditis -case discussed with Dr. Masterson will follow-up with Johnny Cary M.D. ( infectious disease) -continue present antimicrobial regimen -await blood culture results -obtain transesophageal echocardiogram 2. UTI (urinary tract infection) Plan -urine on admission appears contaminated -no culture obtained -continue present antimicrobial therapy 3. Illicit drug use Status Chronic Onset Date Unknown Plan -patient with illicit drug use with heroin, methamphetamine, THC, and possible ecstasy -patient wishes enrollment in drug treatment program -patient has initiated follow-up with program in [facility] -discharge planning will explore patient's involvement and drug rehabilitation and report back to hospitalist attending 4. Cellulitis of hand Plan -improved -continue present therapy 5. Enterocolitis Plan -not problematic at this time -monitor 6. Iron deficiency anemia Status Acute Onset Date Unknown Plan -patient with history of iron deficiency anemia -monitor -check iron studies, B12, folate Current status: failure, unstable Anticipated discharge date: Anticipated discharge 4-6 weeks Anticipated discharge placement: home with drug treatment program Patient care time: Time in chart review, patient interview, physical exam, CPOE, and care documentation: 35 mins Visit to patient today: 1 Complexity of care: high DVT prophylaxis: SCD E&M Codes Rounding: Inpt-High/[id number]
--- NOTE | 2016-11-23 17:05 | DIAGNOSTIC IMAGING REPORT ---
REFERRING PHYSICIAN/PROVIDER: Cheng Masterson MD CONSULTING MEMBERSHIP ADMINISTRATOR: Neri Ross MD PROCEDURE: M-mode 2D echocardiography with spectral and color flow Doppler TECHNICAL QUALITY: Good. INDICATION: hx of IVDU; rule out valvular disease. RHYTHM DURING PROCEDURE: Normal sinus rhythm INTERPRETATIONS: LEFT VENTRICLE: The LV chamber size, function, wall thickness are all within normal limits. The LV ejection fraction is 60-65%. LV diastolic function is normal. RIGHT VENTRICLE: The right ventricular chamber size and systolic function are both within normal limits. ATRIA: The left atrial chamber size is mildly enlarged at 36.4 mL/m2. The right atrial chamber size is grossly normal. The interatrial septum is grossly intact. MITRAL VALVE: The mitral valve function in structure are both within normal limits. There is no evidence of mitral regurgitation. AORTIC VALVE: The aortic valve trileaflet. Aortic valve opens well. There is no evidence of aortic regurgitation. TRICUSPID VALVE: The tricuspid valve appears to be grossly normal. However there is an independent oscillated filamentous mass that is attached tricuspid valve located on the atrial side. The mass appears to be a test to the posterior leaflet. There is moderate tricuspid regurgitation. Finding is suspicious for endocarditis. PULMONIC VALVE: The pulmonic valve is grossly normal. There is no significant pulmonic regurgitation. GREAT VESSELS: The aorta root and the ascending aorta are both within normal limits. The IVC is of normal size and collapses more than 50% during respiration. This is consistent with a low right atrial pressure of 3 mmHg. PERICARDIUM: There is no evidence of pericardial effusion. IMPRESSION: 1. Normal LV and RV systolic function. 2. Left atrial chamber size mildly enlarged. 3. 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 Moderate tricuspid regurgitation. Clinical correlation is recommended. 4. No other significant abnormalities or valves with masses suspicious for endocarditis.
--- NOTE | 2016-11-23 21:44 | Progress Note ---
Subjective General Patient is seen at bedside. Patient appears to be alert awake; she appears to have sensibility. Her boyfriend is present in the room. Patient reports that she is having difficult time with anxiousness and nervousness due to her current status. Patient reports that she may end up going AMA if she is not allowed to have her boyfriend stay in the room. Health-related concerns were discussed; patient informed that she has a tricuspid leaflet valve disease. Likely vegetation or infection of the valve. Seen on echocardiogram; earlier today on She is encouraged to stay for her IV antibiotic therapy. Patient will need at least 6 weeks of IV antibiotics. I also informed her that we would be a discussion with infectious disease at [facility]. This may be lead to transfer her care.
--- NOTE | 2016-11-23 21:44 | Progress Note ---
Subjective General Patient is seen at bedside. Patient appears to be alert awake; she appears to have sensibility. Her boyfriend is present in the room. Patient reports that she is having difficult time with anxiousness and nervousness due to her current status. Patient reports that she may end up going AMA if she is not allowed to have her boyfriend stay in the room. Health-related concerns were discussed; patient informed that she has a tricuspid leaflet valve disease. Likely vegetation or infection of the valve. Seen on echocardiogram; earlier today on She is encouraged to stay for her IV antibiotic therapy. Patient will need at least 6 weeks of IV antibiotics. I also informed her that we would be a discussion with infectious disease at [facility]. This may be lead to transfer her care.
[2016-11-24 01:58] VITALS: BP 99/67
--- NOTE | 2016-11-24 06:34 | Progress Note ---
Subjective General Note Date: November 24, 2016 Admission Date: November 22, 2016 Hospital Day: 3 PCP: None Status: Inpatient, ACU on telemetry Advanced Directive: FULL CODE Room: 305 Admission History: The patient is a 31-year-old white female with a past medical history of past medical history of Crohn's disease, illicit drug use-methamphetamine, heroin, marijuana who presented to [facility] emergency department on the day of admission secondary to complaints of abdominal pain, dysuria, left hand swelling and pain, and generalized body aches. [facility] ER evaluation was consistent with UTI, cellulitis of hand, rule out sepsis, and Crohn's disease. Patient was admitted to the hospitalist services for further workup and care. Patient had IV antibiotics implemented. Patient was started on pain control and prophylaxis for DVT and for GI. Echocardiogram performed revealed a vegetation on the posterior leaf of the tricuspid valve. Patient was subsequently assessed with a endocarditis. Pending discussions with infectious disease [facility]. Discussed the implementation of care for endocarditis with patient. Patient was informed that prolonged treatment and recovery would ensue. Patient agreed to further care. Patient was transferred to acute care telemetry to monitor cardiac function. Medications for patient to be consulted by cardiology and infectious disease. For other history present illness, past medical history, family history, social history, review of systems, and admission physical examination please see the patient's history and physical examination and ER visit note in the patient's medical record. Subjective: The patient states that she is generally feeling better. No acute overnight events. She has seen to improve on pain control. Discussed the events of the day including transfer of care to [facility]. Constitutional Weakness, Malaise. Respiratory Denies: SOB w/exertion, Wheezing. Cardiovascular Denies: Chest Pain, Palpitations. Gastrointestinal Other (abdominal pain). Physical Exam Vital Signs / I&Os Vital Signs Date Time Temp Pulse Resp B/P Pulse O2 O2 Flow FiO2 Ox Delivery Rate 11/24 0516 79 24 100 11/24 0235 77 20 910 11/24 0158 97.5 80 20 99/67 99 Room Air 11/24 0015 81 25 100 11/23 2231 80 20 100 11/23 2211 97.5 85 20 107/73 100 Room Air 11/23 2048 87 25 100 11/23 1946 Room Air 11/23 1844 97.5 87 20 112/78 100 Room Air 11/23 1734 87 24 100 11/23 1547 97.5 97 18 111/79 100 Room Air 11/23 1303 84 16 100 11/23 1033 97.5 71 19 99/71 100 Room Air 11/23 0926 81 24 100 11/23 0700 80 16 100 11/23 0651 97.5 92 28 101/58 99 Room Air I&O 11/23 0800 11/23 1600 11/24 0000 Intake Total 2110 1940 480 Output Total 778 070 6881 Balance 1710 1640 -1120 General Appearance Oriented X3 HEENT EOMI Lungs Clear to auscultation Neck Supple Cardiovascular Regular rate and rhythm, Normal S1 and S2, un-appreciated murmur Abdomen Soft Neurological Normal speech Psych/Mental Status Mood normal LAB Results Laboratory Tests 11/24 729 Chemistry Plasma Sodium (136 - 145 mmol/L) 143 Plasma Potassium (3.5 - 5.1 mmol/L) 3.4 Plasma Chloride (98 - 107 mmol/L) 111 CO2 (Enzymatic) (21 - 32 mmol/L) 23 BUN (7 - 18 mg/dL) 6 Creatinine (0.6 - 1.3 mg/dL) 0.5 Est GFR ( Amer) (mL/min) >60 Est GFR (Non-Af Amer) (mL/min) >60 Glucose (70 - 110 mg/dL) 85 Plasma Calcium (8.5 - 10.1 mg/dL) 7.4 Plasma Magnesium (1.8 - 2.4 mg/dL) 1.5 Total Bilirubin (0.0 - 1.0 mg/dL) 0.2 AST (15 - 37 U/L) 16 ALT (12 - 78 U/L) 13 Alkaline Phosphatase (46 - 116 U/L) 20 Total Protein (6.4 - 8.2 g/dL) 5.1 Albumin (3.3 - 5.0 g/dL) 1.7 Hematology WBC (4.5 - 11.5 K/uL) 7.5 RBC (4.00 - 5.20 M/uL) 3.51 Hgb (12.0 - 16.0 gm/dL) 8.6 Hct (36.0 - 46.0 %) 26.7 MCV (80 - 100 fL) 76 MCH (26 - 34 pg) 25 RDW (11.6 - 14.8 %) 14.3 Gran % (53 - 90) 70.1 Lymph % (Auto) (25 - 40 %) 28.0 Ocean % (Auto) (3 - 14 %) 1.9 Plt Count, EDTA (150 - 400 K/uL) 225 PUBS MCHC (31 - 37 g/dL) 32 Toxicology Vancomycin Trough (10.0 - 20.0 ug/mL) 24.8 Assessment and Plan Problem List 1. Endocarditis determined by echocardiography Plan As seen on the echocardiogram this is suggestive lesion on the tricuspid valve. Case was discussed with Dr. Cary and Dr. Sy. Transfer of care to [facility]. Patient will be transferred under the hospitalist service with consults with cardiology and ID Continue the same IV antibiotics until seen by ID. Reviewed recommendations for transesophageal echocardiogram. The findings were discussed with patient she agrees with the transfer and higher level of care. 2. UTI (urinary tract infection) Plan Likely contaminated urine. Cultures have not Obtained. 3. Illicit drug use Status Chronic Onset Date Unknown Plan Illicit drug use in the past. Treatment options disclosed to patient. She is willing to entertain the thoughts program so that she can discontinue all forms of drug use. 4. Enterocolitis Plan This is stable; resolving symptoms. There were signs of enterocolitis likely viral on CT imaging Monitor follow and support 5. Cellulitis of hand Plan Resolving infection in the hand. No Changes in antibiotics at this time. 6. Fever Plan No notable fever in the past 24 hours. Monitor Current status: unstable Anticipated discharge date: Anticipated discharge 2-4 weeks Anticipated discharge placement: home with drug treatment program; transfer of care to schedule a hospital Patient care time: Time in chart review, patient interview, physical exam, CPOE, and care documentation: 35 mins Visit to patient today: 1 Complexity of care: high DVT prophylaxis: SCD E&M Codes Rounding: Inpt-High/19956
[2016-11-24 08:03] VITALS: BP 92/63
--- NOTE | 2016-11-24 09:34 | ED MAR SUMMARY ---
..... Medication Administration Record [facility] [address] [facility] [place] [address] Patient: KUSHAL SIMENTAL Visit ID: [id number] 31y, F Weight: 58.9 kg Height/Length: 62 in BMI: 23.8 ALLERGIES: Tylenol, Ibuprofen Start 12:04 11/22/2016 Nicanor Alicea R.N., Stop 13:10 11/22/2016 Rama Liz R.N. Medication Administered: IV NS (SALINE), Dose: IV Fluids over 1 hour(s), Rate: 999 mL/hr, Dispensed: 1000 mL bag, Site: #1 right upper arm. Medication Ordered: IV NS : initial bolus 1000 mL (1000 mL/hr), then 150 mL/hr for 4h (NOW); Urgent. Start 16:11 11/22/2016 Rama Liz R.N., Continued Upon Admission 17:30 11/22/2016 Rama Liz R.N. Medication Administered: IV NS (SALINE), Dose: IV Fluids over 4 hour(s), Rate: 200 mL/hr, Dispensed: 1000 mL bag, Site: #1 right upper arm. Medication Ordered: IV NS : initial bolus 1000 mL (1000 mL/hr), then 150 mL/hr for 4h (NOW); Urgent. Start 16:49 11/22/2016 Rama Liz R.N., Stop 17:21 11/22/2016 Rama Liz R.N. Medication Administered: ZOSYN [IVPB] (PIPERACILLIN SOD-TAZOBACTAM SO), Dose: 3.375 gm IVPB over 30 minute(s), Rate: 100 mL/hr, Dispensed: 50 mL bag, Site: #1 right upper arm. Medication Ordered: Zosyn IV 3.375 gm/50mL (NOW). Start 17:25 11/22/2016 Rama Liz R.N., Continued Upon Admission 17:32 11/22/2016 Rama Liz R.N. Medication Administered: VANCOMYCIN [IVPB], Dose: 1.5 gm IVPB over 90 minute(s), Rate: 324 mL/hr, Dispensed: 500 mL bag, Site: #1 right upper arm. Medication Ordered: Vancomycin IV 1.5 gm/500 mL (NOW).
--- NOTE | 2016-11-24 09:34 | ED MAR SUMMARY ---
..... Medication Administration Record [facility] [address] [address] Patient: KUSHAL SIMENTAL Visit ID: [id number] 31y, F Weight: 58.9 kg Height/Length: 62 in BMI: 23.8 ALLERGIES: Tylenol, Ibuprofen Start 12:04 11/22/2016 Nicanor Alicea R.N., Stop 13:10 11/22/2016 Rama Liz R.N. Medication Administered: IV NS (SALINE), Dose: IV Fluids over 1 hour(s), Rate: 999 mL/hr, Dispensed: 1000 mL bag, Site: #1 right upper arm. Medication Ordered: IV NS : initial bolus 1000 mL (1000 mL/hr), then 150 mL/hr for 4h (NOW); Urgent. Start 16:11 11/22/2016 Rama Liz R.N., Continued Upon Admission 17:30 11/22/2016 Rama Liz R.N. Medication Administered: IV NS (SALINE), Dose: IV Fluids over 4 hour(s), Rate: 200 mL/hr, Dispensed: 1000 mL bag, Site: #1 right upper arm. Medication Ordered: IV NS : initial bolus 1000 mL (1000 mL/hr), then 150 mL/hr for 4h (NOW); Urgent. Start 16:49 11/22/2016 Rama Liz R.N., Stop 17:21 11/22/2016 Rama Liz R.N. Medication Administered: ZOSYN [IVPB] (PIPERACILLIN SOD-TAZOBACTAM SO), Dose: 3.375 gm IVPB over 30 minute(s), Rate: 100 mL/hr, Dispensed: 50 mL bag, Site: #1 right upper arm. Medication Ordered: Zosyn IV 3.375 gm/50mL (NOW). Start 17:25 11/22/2016 Rama Liz R.N., Continued Upon Admission 17:32 11/22/2016 Rama Liz R.N. Medication Administered: VANCOMYCIN [IVPB], Dose: 1.5 gm IVPB over 90 minute(s), Rate: 324 mL/hr, Dispensed: 500 mL bag, Site: #1 right upper arm. Medication Ordered: Vancomycin IV 1.5 gm/500 mL (NOW).
--- NOTE | 2016-11-24 09:34 | ED DISCHARGE INSTRUCTIONS ---
Patient: KUSHAL SIMENTAL General Instructions [facility] VisitID: [id number] [place] [address] 31y, F Registration Date/Time: 11/22/2016 Acute fever. Leukocytosis. Substance abuse- marijuana, heroin, methamphetamines. Gastroenteritis. Cellulitis of the left hand. ADDITIONAL INFORMATION Drug Abuse Use and abuse of such drugs as marijuana, amphetamines (speed, crank), cocaine, heroin or prescription pain medicines (Vicodin, codeine), sedatives and sleeping pills (Valium, Klonopin), PCP, mescaline and LSD may lead to addiction or dependence. Once this occurs, you are at greater risk for any of the following: Craving for the drug and unable to stop using the drug even though you think you want to stop (psychological dependence) Drug withdrawal symptoms if you stop taking the drug (physical dependence) Loss of your job or your family Arrest, conviction and senior living sentence for possession of an illegal substance or for driving under the influence of such a substance Accidental injuries to yourself or others while you are under the influence of the drug (in a car or at home). HIV infection (much greater risk if you use IV drugs) Other sexually transmitted diseases (herpes, chlamydia, gonorrhea and others) Severe and fatal infection of the heart valves (if you use IV drugs) Stroke, heart attack, hepatitis B or C, kidney failure from overdose Home Care: Admit you have a drug problem. Ask for help from your family and close friends. Seek professional help. This could be in the form of individual psychotherapy or counseling or an outpatient, inpatient, or residential drug treatment program. Join a self-help group for drug abuse. Avoid friends who abuse drugs themselves or tempt you to continue abusing drugs. Eat a balanced diet and begin a regular exercise program. Follow Up with your doctor or as advised by our staff. Contact one of the resources below for help. National [place] on Alcoholism and Drug Dependence www.ncadd.org 537-837-FIYB Narcotics Anonymous www.na.org 579-117-5586 National Alcohol and Substance Abuse Information Center (for referral to treatment programs) www.[employer] que [employer] 720-020-0935 Get Prompt Medical Attention if any of the following occur: Agitation, anxiety, unable to sleep Unintended weight loss (more than 10 to 15 pounds over 3 months) Seizure Chest pain Fever of 100.4F (38C) or higher, or as directed by your healthcare provider Excess drowsiness or inability to be awakened Shortness of breath Slow breathing under 8 breaths per minute Cough with colored sputum Redness, swelling or tenderness at an injection site Marijuana Abuse Marijuana is the most widely used illegal drug in the [place]. It is called by various names such as pot, weed, blunts, grass, reefer, ganja, hash, hashish. It is usually smoked but can be mixed with foods or brewed as a tea. It is sometimes sold with PCP (Patrick Dust) or amphetamine mixed in it. These drugs can cause other harmful side effects. Marijuana can cause the following effects: Changes in mood (stimulated, happy, drowsy, depressed, paranoid) Hallucinations Increased heart rate and blood pressure Increased appetite Time distortion, difficulty concentrating, impaired memory Lung damage (similar to cigarettes with chronic cough, wheezing, frequent colds and bronchitis) You can become psychologically dependent on marijuana. That means the craving to use the drug is emotional or psychological rather than due to physical withdrawal. Is Marijuana Running Your Life? Here are some of the signs: Relying on marijuana to feel good, forget problems, deal with stress or to relax Wanting to be alone most of the time or only with others who use drugs Losing interest in things that used to be important Changes in school or job performance or attendance Spending a lot of time thinking about how to get marijuana Stealing or selling your things so you can buy marijuana Unable to stop using even though you may want to quit Increasing anxiety, anger,or depression Sleeping too much, changes in eating habits (weight loss or gain) Needing to use more to get the same effect Home Care Once you have become addicted to any drug, quitting is hard to do. Most people find they can't quit without help. So, dont try to do this alone. Talk to someone you trust who can support you. Seek professional help. Avoid people and places where drugs are used. That only increases the temptation to use. Follow Up with your doctor or as advised by our staff. For more information or a referral to a treatment center in your area, contact: Your local mental health center or the National Alcohol and Substance Abuse Information Center (169)-778-4619 www.[employer] National [place] on Alcoholism and Drug Dependence 174-527-AGZM www.Hashplex.org Marijuana Anonymous 647-522-1230 www.marijuana-anonymous.org Get Prompt Medical Attention if any of the following occur: You feel extreme depression, fear, anxiety, or anger toward yourself or others You feel out of control You feel that you may try to harm yourself or another Opiate Abuse Use and abuse of heroin or prescription pain medicines (Vicodin, codeine) may lead to physical ADDICTION or psychological DEPENDENCE. Once this occurs, you are at greater risk for any of the following: - Craving for the drug and unable to stop using the drug even though you think you want to stop (psychological dependence) - Drug withdrawal symptoms if you stop taking the drug (physical addiction) - Loss of your job or your family - Arrest, conviction and senior living sentence for possession of an illegal substance or for driving under the influence of such a substance - Accidental injuries to yourself or others while you are under the influence of the drug (in a car or at home). - HIV infection (much greater risk if you use IV drugs) - Other sexually transmitted diseases (Herpes, chlamydia, gonorrhea and others) - Severe and fatal infection of the heart valves (if you use IV drugs) - Stroke, heart attack, hepatitis B or C, kidney failure - from overdose Home Care: 1) Admit you have a drug problem. Ask for help from your family and close friends. 2) Seek professional help. This could be individual psychotherapy, counseling, or a drug treatment program (outpatient or residential). 3) Join a self-help group for drug abuse. 4) Avoid friends who abuse drugs themselves or tempt you to continue your habit 5) Eat a balanced diet and begin a regular exercise program. Follow Up with your doctor or as advised by our staff. Contact one of the resources below for help. National [place] on Alcoholism and Drug Dependence, www.ncadd.org 018-379-IZEF Narcotics Anonymous (check your phone book for a local listing or call 776-221-5167) www.na.org National Alcohol and Substance Abuse Information Center (for referral to treatment programs) Www.[employer] 110-527-6707 Get Prompt Medical Attention if any of the following occur: -- Symptoms of withdrawal (agitation, anxiety, trembling, sweats, diarrhea, unable to sleep) -- Chest pain -- Unexplained fever over 100.4 F (38.0 C) -- Excessive drowsiness or inability to be awakened -- Slow breathing under 8 breaths per minute -- Shortness of breath or cough with colored sputum -- Redness, swelling or tenderness at an injection site You have been given the following additional information: Drug Abuse Marijuana Abuse Opiate Abuse (Electronically signed by Nabil Nguyen MD 11/24/2016 9:33)
--- NOTE | 2016-11-24 09:34 | ED DISCHARGE INSTRUCTIONS ---
Patient: KUSHAL SIMENTAL General Instructions [facility] VisitID: [id number] [place] [address] 31y, F Registration Date/Time: 11/22/2016 Acute fever. Leukocytosis. Substance abuse- marijuana, heroin, methamphetamines. Gastroenteritis. Cellulitis of the left hand. ADDITIONAL INFORMATION Drug Abuse Use and abuse of such drugs as marijuana, amphetamines (speed, crank), cocaine, heroin or prescription pain medicines (Vicodin, codeine), sedatives and sleeping pills (Valium, Klonopin), PCP, mescaline and LSD may lead to addiction or dependence. Once this occurs, you are at greater risk for any of the following: Craving for the drug and unable to stop using the drug even though you think you want to stop (psychological dependence) Drug withdrawal symptoms if you stop taking the drug (physical dependence) Loss of your job or your family Arrest, conviction and long-term sentence for possession of an illegal substance or for driving under the influence of such a substance Accidental injuries to yourself or others while you are under the influence of the drug (in a car or at home). HIV infection (much greater risk if you use IV drugs) Other sexually transmitted diseases (herpes, chlamydia, gonorrhea and others) Severe and fatal infection of the heart valves (if you use IV drugs) Stroke, heart attack, hepatitis B or C, kidney failure from overdose Home Care: Admit you have a drug problem. Ask for help from your family and close friends. Seek professional help. This could be in the form of individual psychotherapy or counseling or an outpatient, inpatient, or residential drug treatment program. Join a self-help group for drug abuse. Avoid friends who abuse drugs themselves or tempt you to continue abusing drugs. Eat a balanced diet and begin a regular exercise program. Follow Up with your doctor or as advised by our staff. Contact one of the resources below for help. National [place] on Alcoholism and Drug Dependence www.ncadd.org 066-217-YWHJ Narcotics Anonymous www.na.org 437-521-3495 National Alcohol and Substance Abuse Information Center (for referral to treatment programs) www.[employer] 487-947-8650 Get Prompt Medical Attention if any of the following occur: Agitation, anxiety, unable to sleep Unintended weight loss (more than 10 to 15 pounds over 3 months) Seizure Chest pain Fever of 100.4F (38C) or higher, or as directed by your healthcare provider Excess drowsiness or inability to be awakened Shortness of breath Slow breathing under 8 breaths per minute Cough with colored sputum Redness, swelling or tenderness at an injection site Marijuana Abuse Marijuana is the most widely used illegal drug in the [place]. It is called by various names such as pot, weed, blunts, grass, reefer, ganja, hash, hashish. It is usually smoked but can be mixed with foods or brewed as a tea. It is sometimes sold with PCP (Patrick Dust) or amphetamine mixed in it. These drugs can cause other harmful side effects. Marijuana can cause the following effects: Changes in mood (stimulated, happy, drowsy, depressed, paranoid) Hallucinations Increased heart rate and blood pressure Increased appetite Time distortion, difficulty concentrating, impaired memory Lung damage (similar to cigarettes with chronic cough, wheezing, frequent colds and bronchitis) You can become psychologically dependent on marijuana. That means the craving to use the drug is emotional or psychological rather than due to physical withdrawal. Is Marijuana Running Your Life? Here are some of the signs: Relying on marijuana to feel good, forget problems, deal with stress or to relax Wanting to be alone most of the time or only with others who use drugs Losing interest in things that used to be important Changes in school or job performance or attendance Spending a lot of time thinking about how to get marijuana Stealing or selling your things so you can buy marijuana Unable to stop using even though you may want to quit Increasing anxiety, anger,or depression Sleeping too much, changes in eating habits (weight loss or gain) Needing to use more to get the same effect Home Care Once you have become addicted to any drug, quitting is hard to do. Most people find they can't quit without help. So, dont try to do this alone. Talk to someone you trust who can support you. Seek professional help. Avoid people and places where drugs are used. That only increases the temptation to use. Follow Up with your doctor or as advised by our staff. For more information or a referral to a treatment center in your area, contact: Your local mental health center or the National Alcohol and Substance Abuse Information Center (414)-881-9055 www.[employer] National [place] on Alcoholism and Drug Dependence 301-686-NXYG www.[place].org Marijuana Anonymous 013-265-4360 www.marijuana-anonymous.org Get Prompt Medical Attention if any of the following occur: You feel extreme depression, fear, anxiety, or anger toward yourself or others You feel out of control You feel that you may try to harm yourself or another Opiate Abuse Use and abuse of heroin or prescription pain medicines (Vicodin, codeine) may lead to physical ADDICTION or psychological DEPENDENCE. Once this occurs, you are at greater risk for any of the following: - Craving for the drug and unable to stop using the drug even though you think you want to stop (psychological dependence) - Drug withdrawal symptoms if you stop taking the drug (physical addiction) - Loss of your job or your family - Arrest, conviction and long-term sentence for possession of an illegal substance or for driving under the influence of such a substance - Accidental injuries to yourself or others while you are under the influence of the drug (in a car or at home). - HIV infection (much greater risk if you use IV drugs) - Other sexually transmitted diseases (Herpes, chlamydia, gonorrhea and others) - Severe and fatal infection of the heart valves (if you use IV drugs) - Stroke, heart attack, hepatitis B or C, kidney failure - from overdose Home Care: 1) Admit you have a drug problem. Ask for help from your family and close friends. 2) Seek professional help. This could be individual psychotherapy, counseling, or a drug treatment program (outpatient or residential). 3) Join a self-help group for drug abuse. 4) Avoid friends who abuse drugs themselves or tempt you to continue your habit 5) Eat a balanced diet and begin a regular exercise program. Follow Up with your doctor or as advised by our staff. Contact one of the resources below for help. National [place] on Alcoholism and Drug Dependence, www.ncadd.org 157-454-KRKX Narcotics Anonymous (check your phone book for a local listing or call 477-670-8912) www.na.org National Alcohol and Substance Abuse Information Center (for referral to treatment programs) Www.[employer] 448-008-5113 Get Prompt Medical Attention if any of the following occur: -- Symptoms of withdrawal (agitation, anxiety, trembling, sweats, diarrhea, unable to sleep) -- Chest pain -- Unexplained fever over 100.4 F (38.0 C) -- Excessive drowsiness or inability to be awakened -- Slow breathing under 8 breaths per minute -- Shortness of breath or cough with colored sputum -- Redness, swelling or tenderness at an injection site You have been given the following additional information: Drug Abuse Marijuana Abuse Opiate Abuse (Electronically signed by Nabil Nguyen MD 11/24/2016 9:33)
--- NOTE | 2016-11-24 09:35 | ED MED RECONCILIATION SUMMARY ---
Patient: KUSHAL SIMENTAL Medication Reconciliation Report [facility] VisitID: [id number] [place] [address] 31y, F Registration Date/Time: 11/22/2016 Weight: 58.9 kg Height/Length: 62 in. BMI: 23.8 ALLERGIES: Ibuprofen, Tylenol The patient's Home Medications are listed below: NONE. The source(s) of the original Home Medication information: patient The following Medications were given to the patient in the Emergency Department: IV NS IV Fluids bolus 0, then 999 mL/hr, administered: 11/22/2016 12:04:00 PM IV NS IV Fluids bolus 0, then 200 mL/hr, administered: 11/22/2016 4:11:00 PM Zosyn [IVPB] IVPB bolus 0, then 3.375 gm 100 mL/hr, administered: 11/22/2016 4:49:00 PM Vancomycin [IVPB] IVPB bolus 0, then 1.5 gm 324 mL/hr, administered: 11/22/2016 5:25:00 PM The following Medications were prescribed to the patient: None.
--- NOTE | 2016-11-24 09:35 | ED MED RECONCILIATION SUMMARY ---
Patient: KUSHAL SIMENTAL Medication Reconciliation Report [facility] VisitID: [id number] [place] [address] 31y, F Registration Date/Time: 11/22/2016 Weight: 58.9 kg Height/Length: 62 in. BMI: 23.8 ALLERGIES: Ibuprofen, Tylenol The patient's Home Medications are listed below: NONE. The source(s) of the original Home Medication information: patient The following Medications were given to the patient in the Emergency Department: IV NS IV Fluids bolus 0, then 999 mL/hr, administered: 11/22/2016 12:04:00 PM IV NS IV Fluids bolus 0, then 200 mL/hr, administered: 11/22/2016 4:11:00 PM Zosyn [IVPB] IVPB bolus 0, then 3.375 gm 100 mL/hr, administered: 11/22/2016 4:49:00 PM Vancomycin [IVPB] IVPB bolus 0, then 1.5 gm 324 mL/hr, administered: 11/22/2016 5:25:00 PM The following Medications were prescribed to the patient: None.
[2016-11-24 11:00] VITALS: BP 181/75
[2016-11-24 11:14] VITALS: BP 104/69
--- NOTE | 2016-11-24 13:13 | Provider's Discharge Care Plan ---
Problem, Goal, Plan Problem List 1. 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 also for procedure 2. UTI (urinary tract infection) Goals: Prevent disease progress, Therapeutic intervention Instructions: Take meds as directed 3. Illicit drug use Goals: therapy to discontinue use Instructions: discontinue all forms nonprescribed injections 4. Fever Goals: Learn about illness Instructions: Take meds as directed 5. Cellulitis of hand Goals: Improve nutrition status, Prevent disease progress Instructions: Take meds as directed
--- NOTE | 2016-11-24 13:50 | Discharge Summary ---
Discharge Summary Report Admit Date 11/23/16 Discharge Date 11/24/16 (transfer date to [facility]) Admission Diagnosis 1. Cellulitis of the right hand 2. Enterocolitis 3. Substance abuse 4. UTI 5. Leukocytosis 6. Fever Discharge Diagnosis 1. Cellulitis of the right hand 2. Enterocolitis 3. Substance abuse 4. UTI 5. Leukocytosis 6. Fever 7. Endocarditis Brief History See [facility] dated 11/22/2016. In brief this is a 31-year-old white female with history of IV drug use now with fevers and general malaise and abdominal cramping. Echocardiogram revealing for fish dictation on the tricuspid valve. Hospital Course 31-year-old white female was past medical history of Crohn's disease, illicit drug use-methamphetamine, heroin, marijuana was noted through the [facility] emergency department with complaints of abdominal pain, dysuria, left hand swelling and pain, and generalized body aches. The evaluation through [facility] was consistent UTI , cellulitis, colitis and sepsis. Patient was started on pain control and prophylaxis for DVT and for GI. Patient had recurrent fevers on day 1 of the admission in addition patient was found to be hypersomnolent but arousable and alert. Patient was given 2 Narcan vials on night 1 due to poor responsiveness. The patient had increased agitation as a result of the Narcan infusion. Patient on day number 2 in the AM was threatening to leave the hospital AMA. Patient completed echocardiogram. The echocardiogram was significant for a vegetation on the posterior leaf of the tricuspid valve. She remained on the IV infusion of vancomycin and Zosyn. Discussed the options of care with our infectious disease Dr. Mercedes; due to the non-identified organism it was recommended the patient be transferred to [facility] for further evaluations. Patient was also in need of a transesophageal ultrasonography to review the posterior valves of the heart. Also consulted and discussed the issues and with [facility] who also suggested transfer of care. Discussed the implementation of care for endocarditis with patient. Patient was informed that prolonged treatment and recovery would ensue. Patient agreed to further care. Patient was transferred to acute care telemetry to monitor cardiac function. [facility] services of cardiology and infectious disease. General Appearance Oriented X3, Mild distress, hypersomnolent; mildly cooperative Lungs Clear to auscultation, Normal air movement Cardiovascular Normal S1, Normal S2, difficult to appreciate a systolic murmur Abdomen Soft Skin cellulitis left upper extremity No splinter hemorrhages Neurological Normal gait, Normal speech, Cranial nerves 3-12 NL Psych/Mental Status agitated Lab/Imaging Laboratory Tests 11/24 0730 Chemistry Plasma Sodium (136 - 145 mmol/L) 143 Plasma Potassium (3.5 - 5.1 mmol/L) 3.4 Plasma Chloride (98 - 107 mmol/L) 111 CO2 (Enzymatic) (21 - 32 mmol/L) 23 BUN (7 - 18 mg/dL) 6 Creatinine (0.6 - 1.3 mg/dL) 0.5 Est GFR ( Amer) (mL/min) >60 Est GFR (Non-Af Amer) (mL/min) >60 Glucose (70 - 110 mg/dL) 85 Plasma Calcium (8.5 - 10.1 mg/dL) 7.4 Plasma Magnesium (1.8 - 2.4 mg/dL) 1.5 Total Bilirubin (0.0 - 1.0 mg/dL) 0.2 AST (15 - 37 U/L) 16 ALT (12 - 78 U/L) 13 Alkaline Phosphatase (46 - 116 U/L) 20 Total Protein (6.4 - 8.2 g/dL) 5.1 Albumin (3.3 - 5.0 g/dL) 1.7 Hematology WBC (4.5 - 11.5 K/uL) 7.5 RBC (4.00 - 5.20 M/uL) 3.51 Hgb (12.0 - 16.0 gm/dL) 8.6 Hct (36.0 - 46.0 %) 26.7 MCV (80 - 100 fL) 76 MCH (26 - 34 pg) 25 RDW (11.6 - 14.8 %) 14.3 Gran % (53 - 90) 70.1 Lymph % (Auto) (25 - 40 %) 28.0 [place] % (Auto) (3 - 14 %) 1.9 Plt Count, EDTA (150 - 400 K/uL) 225 PUBS MCHC (31 - 37 g/dL) 32 Toxicology Vancomycin Trough (10.0 - 20.0 ug/mL) 24.8 M-mode 2D echocardiography 1. Normal LV and RV systolic function. 2. Left atrial chamber size mildly enlarged. 3. 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 Moderate tricuspid regurgitation. Clinical correlation is recommended. 4. No other significant abnormalities or valves with masses suspicious for endocarditis. Discharge Instructions/Meds Transfer of care to [facility] for higher level care. Patient will need to be consulted by infectious disease and by cardiology. Patient needing further recommendations for EEG. She'll continue with the IV vancomycin and Zosyn until optimized by ID. Continue with the prophylaxis for GI and DVT. Maintain with methadone 15 mg every 6 hours as needed, with caution. PICC line is placed in the right upper extremity. 1.5 times maintenance IV fluids Discharge condition: Poor but improved Greater than 30 min. was spent in the patient's discharge preparation including discharge interview and physical examination, progress note, discharge instructions, and discharge summary; and transfer of care The patient was interviewed and examined on the day of discharge.
--- NOTE | 2016-11-24 13:50 | Discharge Summary ---
Discharge Summary Report Admit Date 11/23/16 Discharge Date 11/24/16 (transfer date to [facility]) Admission Diagnosis 1. Cellulitis of the right hand 2. Enterocolitis 3. Substance abuse 4. UTI 5. Leukocytosis 6. Fever Discharge Diagnosis 1. Cellulitis of the right hand 2. Enterocolitis 3. Substance abuse 4. UTI 5. Leukocytosis 6. Fever 7. Endocarditis Brief History See [facility] dated 11/22/2016. In brief this is a 31-year-old white female with history of IV drug use now with fevers and general malaise and abdominal cramping. Echocardiogram revealing for fish dictation on the tricuspid valve. Hospital Course 31-year-old white female was past medical history of Crohn's disease, illicit drug use-methamphetamine, heroin, marijuana was noted through the [facility] emergency department with complaints of abdominal pain, dysuria, left hand swelling and pain, and generalized body aches. The evaluation through [facility] was consistent UTI , cellulitis, colitis and sepsis. Patient was started on pain control and prophylaxis for DVT and for GI. Patient had recurrent fevers on day 1 of the admission in addition patient was found to be hypersomnolent but arousable and alert. Patient was given 2 Narcan vials on night 1 due to poor responsiveness. The patient had increased agitation as a result of the Narcan infusion. Patient on day number 2 in the AM was threatening to leave the hospital AMA. Patient completed echocardiogram. The echocardiogram was significant for a vegetation on the posterior leaf of the tricuspid valve. She remained on the IV infusion of vancomycin and Zosyn. Discussed the options of care with our infectious disease Dr. Mercedes; due to the non-identified organism it was recommended the patient be transferred to [facility] for further evaluations. Patient was also in need of a transesophageal ultrasonography to review the posterior valves of the heart. Also consulted and discussed the issues and with [facility] who also suggested transfer of care. Discussed the implementation of care for endocarditis with patient. Patient was informed that prolonged treatment and recovery would ensue. Patient agreed to further care. Patient was transferred to acute care telemetry to monitor cardiac function. [facility] and infectious disease. General Appearance Oriented X3, Mild distress, hypersomnolent; mildly cooperative Lungs Clear to auscultation, Normal air movement Cardiovascular Normal S1, Normal S2, difficult to appreciate a systolic murmur Abdomen Soft Skin cellulitis left upper extremity No splinter hemorrhages Neurological Normal gait, Normal speech, Cranial nerves 3-12 NL Psych/Mental Status agitated Lab/Imaging Laboratory Tests 11/24 0730 Chemistry Plasma Sodium (136 - 145 mmol/L) 143 Plasma Potassium (3.5 - 5.1 mmol/L) 3.4 Plasma Chloride (98 - 107 mmol/L) 111 CO2 (Enzymatic) (21 - 32 mmol/L) 23 BUN (7 - 18 mg/dL) 6 Creatinine (0.6 - 1.3 mg/dL) 0.5 Est GFR ( Amer) (mL/min) >60 Est GFR (Non-Af Amer) (mL/min) >60 Glucose (70 - 110 mg/dL) 85 Plasma Calcium (8.5 - 10.1 mg/dL) 7.4 Plasma Magnesium (1.8 - 2.4 mg/dL) 1.5 Total Bilirubin (0.0 - 1.0 mg/dL) 0.2 AST (15 - 37 U/L) 16 ALT (12 - 78 U/L) 13 Alkaline Phosphatase (46 - 116 U/L) 20 Total Protein (6.4 - 8.2 g/dL) 5.1 Albumin (3.3 - 5.0 g/dL) 1.7 Hematology WBC (4.5 - 11.5 K/uL) 7.5 RBC (4.00 - 5.20 M/uL) 3.51 Hgb (12.0 - 16.0 gm/dL) 8.6 Hct (36.0 - 46.0 %) 26.7 MCV (80 - 100 fL) 76 MCH (26 - 34 pg) 25 RDW (11.6 - 14.8 %) 14.3 Gran % (53 - 90) 70.1 Lymph % (Auto) (25 - 40 %) 28.0 Dane % (Auto) (3 - 14 %) 1.9 Plt Count, EDTA (150 - 400 K/uL) 225 PUBS MCHC (31 - 37 g/dL) 32 Toxicology Vancomycin Trough (10.0 - 20.0 ug/mL) 24.8 M-mode 2D echocardiography 1. Normal LV and RV systolic function. 2. Left atrial chamber size mildly enlarged. 3. 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 Moderate tricuspid regurgitation. Clinical correlation is recommended. 4. No other significant abnormalities or valves with masses suspicious for endocarditis. Discharge Instructions/Meds Transfer of care to [facility] for higher level care. Patient will need to be consulted by infectious disease and by cardiology. Patient needing further recommendations for EEG. She'll continue with the IV vancomycin and Zosyn until optimized by ID. Continue with the prophylaxis for GI and DVT. Maintain with methadone 15 mg every 6 hours as needed, with caution. PICC line is placed in the right upper extremity. 1.5 times maintenance IV fluids Discharge condition: Poor but improved Greater than 30 min. was spent in the patient's discharge preparation including discharge interview and physical examination, progress note, discharge instructions, and discharge summary; and transfer of care The patient was interviewed and examined on the day of discharge.
== END 2016-11-24 13:00 | disposition short-term general hospital (02) | DRG 720 ==
LOC: ED SRH 10:02 → TRANS SRH 16:26 → ACUTE2 SRH 17:35 → CC SRH 11-23 20:29
PROVIDERS: ADMIT Pediatrics
PROC: 02HV33Z Insertion of Infusion Device into Superior Vena Cava, Percutaneous Approach (ICD-10-PCS; principal; 2016-11-22)
DX: A41.9 Sepsis, unspecified organism (principal); I33.0 Acute and subacute infective endocarditis; L03.114 Cellulitis of left upper limb; N39.0 Urinary tract infection, site not specified; A08.4 Viral intestinal infection, unspecified; R40.0 Somnolence; F11.10 Opioid abuse, uncomplicated; F15.10 Other stimulant abuse, uncomplicated; D50.9 Iron deficiency anemia, unspecified; K50.90 Crohn's disease, unspecified, without complications
CPT/HCPCS: 29230; 83463; 90004; 90065; 90100; 91583; 91643; 91672; 92031; 92132; 92235; 92530; 92720; 92760; 92761; 92762; 92763; 92764; 92765; 92766; 92767; 93070; 95059